=== PATIENT | male | born 1940 | race Caucasian/White ===

== ENCOUNTER 2017-01-07 12:05 | Inpatient (IN) | payer MEDICARE, OTHER ==
[~2017-01-07] VITALS: Ht 188 cm; Wt 93.8 kg
[~2017-01-07 12:05] MED LIST: ASPI-973 PO; ERTA1VIA2 IV; EZET10TA27 PO; FENO160T14 PO; GLIM4TAB2 PO; INSU100V7 SUBQ; METF500T4 PO; METO25TA6 PO; SITA100T12 PO
--- NOTE | 2017-01-07 12:46 | PCM.HPMED ---
Subjective Date of Service Jan 07, 2017 Primary Provider: Admitting Physician: Jovita Beth DO Primary Care Physician: Alejandro Briones MD Attending Physician: Jovita Beth DO Admit Status: Direct Admit Chief Complaint: PICC line thrombosis History of Present Illness: 76-year-old pleasant white male with past medical history of insulin-dependent diabetic diabetes, toe osteomyelitis for which he is currently on ertapenem and then ceftriaxone infusions until January 31, CAD, PVD, Velazquez's, fatty liver, hyperlipidemia, hypertension, old [place], urinary retention and peripheral neuropathy is presenting with chief complaint of right arm PICC line blood clot or thrombosis. He was in the unit in [place] for ertapenem infusion then he was noted to have the hematoma. Dr. Villalobos has ordered a ultrasound which showed the DVT. He was sent to [facility] admission for inpatient management of the DVT Patient patient denies arm numbness arm weakness. But he does endorse some tightening sensation in all also pain over his right shoulder and also distally into his elbow he thinks that the pain started 3 AM this morning he did not take anything to treat the patient appears his infusion set supposed to continue till January 21 denies that this to problems endorsing slight slow stream and urinary difficulty, peripheral neuropathy. He states that he has had no fevers or chills. Denies all other review of systems except as stated here.. Review of Systems: I will review of systems negative except as stated above Allergies Coded Allergies: Ssdstdf-Dat-Vpe Reductase Inhibitor (Verified Adverse Reaction, Intermediate, 12/25/16) nausea lisinopril (Verified Adverse Reaction, Mild, 12/25/16) PMH Past medical history is pertinent for type II diabetes that is insulin-dependent , toe osteomyelitis for which he is currently on IV treatment, hypertension, CAD status post W[place], CHRISTIE, status post leg stents bilaterally, colon cancer, Velazquez's esophagus, fatty liver, hyperlipidemia, peripheral neuropathy, BPH Surgical History Surgical history remarkable for open heart surgery 3 bypasses, oral surgery to remove all teeth, both knees had a bypass stents, meniscal tear repair bilateral knees Family History Mother had a blood cancer Dad of old age Social History Living Arrangement: with Family Exam Exam Gen.: No acute distress sitting up talking pleasantly HEENT: Normocephalic, atraumatic Neck midline no JVD Heart: Regular rate and rhythmwithout murmurs Lungs clear to auscultation bilaterally Abdomen: Nondistended nonobese Extremities: +1+ pitting edema in the right lower extremity, big toe on the light right side is wrapped in bandages Dr. 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 IMPRESSION: Intraluminal thrombus within the right subclavian, axillary, basilic and one of the 2 brachial veins of the left upper arm. Dictated by: Paul Price RRMarga Interpreted: Austin Nur MD on 01/07/2017 at 10 :23 Transcribed by: FRED on 01/07/2017 at 10:27 Assessment & Plan Acute diagnoses 1. DVT, POA: "Intraluminal thrombus visualized within the subclavian, axillary, basilic and and one of the paired brachial veins within the upper arm. Patent brachial veins and basilic vein within the distal arm" -- Heparin drip weight-based DVT PE protocol, will consider Coumadin versus Eliquis based on his insurance. Please discuss this with the UR to make sure he qualifies very eloquent as prior to starting Coumadin. Consider keeping him here for 2 days and heparin drip due to the extent of the clot prior to DC. -- Add hypercoagulability workup to his lab from this a.m. with possible -- DC/remove PICC line in 2 days per protocol, unless patient has increased pain , in that event, removing the line sooner is appropriate -- Added on factor work up to existing lab. -- EMERITA w/reflex and hepatitis panel can be drawn tomorrow AM. These labs are ordered as well. 2: Osteo myelitis of the right big toe, POA: Continue ceftriaxone infusions daily until January [address] Villalobos -- There is mention of Flagyl by pharmacy, patient may need to take by mouth. Investigate Chronic diagnoses: 3. DM II, chronic: 30 units daily at bedtime Lantus plus low-dose sliding scale plus metformin: Hold Januvia and glimepiride 4. HTN Continue her medication 5. CAD continue home aspirin, apparently is allergic to statins CODE STATUS: Limited resuscitation, does not want ventilator, chest compressions are okay DPOA: Youngest daughter Mary Jo Pain Evaluation: Adequate Pain Control VTE Prophylaxis: Other (heparin drip) Resuscitation Status: Limited Interventions Limited Interventions: Compressions, Cardioversion/Defibrillation Jovita Beth DO Jan 07, 2017 12:46 Pain Evaluation: Adequate Pain Control VTE Prophylaxis: Other (heparin drip) Resuscitation Status: Limited Interventions Limited Interventions: Compressions, Cardioversion/Defibrillation Jovita Beth DO Jan 07, 2017 12:46
[2017-01-07] MEDS ORDERED: Alum-Mag Hydrox-Simeth 30 mL Suspension PO PRN (12:55)
[2017-01-07] MEDS ORDERED: Ondansetron 2 mg/mL 2 mL Inj IVPUSH PRN (12:55)
[2017-01-07] MEDS ORDERED: Polyethylene Glycol (PEG) 17 Gm Powder PO PRN (12:55)
[2017-01-07] MEDS ORDERED: Heparin 5,000 Unit/mL Inj IVPUSH PRN (13:25)
[2017-01-07] MEDS ORDERED: Heparin 5,000 Unit/mL Inj IVPUSH ONE (13:25)
[2017-01-07] MEDS ORDERED: Heparin 25K Unit/500mL 0.45 NS 25,000 UNIT in IV Premix 1 EACH IV SCH (13:25)
[2017-01-07 13:30] VITALS: BP 98/58; PULSE 63; RESP 18; O2SAT 99
[2017-01-07] MEDS ORDERED: Glucose 40% Oral Gel 15 Gm Tube PO PRN (13:30)
[2017-01-07 14:32] LABS: INR 1.18 ratio
[2017-01-07] MEDS ORDERED: ROSU10TA24 PO (14:56)
--- NOTE | 2017-01-07 15:34 | DRSVH ---
PROCEDURE: X-RAY CHEST ONE VIEW, PORTABLE ([id number]) INDICATIONS: picc line verification TECHNIQUE: One view of the chest was acquired. COMPARISON: [facility], CR, XR CHEST 1VW (PORTABLE), 12/25/2016, 12:02. FINDINGS: Surgical changes and devices: Post median sternotomy. Right PICC present projected over the lower SV C. Lungs and pleura: No pleural effusions or pneumothorax. Lungs are clear. Mediastinum: Mediastinal contours appear normal. Heart size is normal. Bones and chest wall: No suspicious bony lesions. Overlying soft tissues appear unremarkable. IMPRESSION: Right PICC tip projected over the lower SVC. Dictated by: Paul Price [facility] Interpreted: Austin Nur MD on 01/07/2017 at 15:33 Transcribed by: FRED on 01/07/2017 at 15:33 Approved by: Austin Nur M.D. on 01/07/2017 at 15:43
[2017-01-07] MEDS: Sodium Chloride LOK Flush 10 mL Syringe IVFLUSH SCH (16:06)
[2017-01-07] MEDS: Insulin LISPRO 300 Unit/3 mL Inj SUBQ SCH ×2 (17:25→21:24)
--- NOTE | 2017-01-07 19:18 | NUR ---
Admit from outpatient MOC pt. receiving scheduled daily antibiotics through outpatient [facility]. RUE painful, tender, edematous around PICC line; us verified blood clot. Pt. admitted to [facility] 248-1; heparin bolus 7500 units given per md orders; started heparin gtt per dvt protocol at 18 units/kg/hr, 33.8 ml/hr, verified with Sandra Pederson RN. IND in room; steady on feet.
[2017-01-07 20:30] VITALS: BP 114/66; PULSE 64; RESP 16; O2SAT 96
[2017-01-07] MEDS ORDERED: Insulin GLARgine 100 Unit/mL Syringe SUBQ SCH (21:00)
[2017-01-07] MEDS: Insulin GLARgine 100 Unit/mL Syringe SUBQ SCH (21:21)
[2017-01-08] VITALS: BP 118/74; PULSE 66; RESP 17; O2SAT 95
[2017-01-08] MEDS: Sodium Chloride LOK Flush 10 mL Syringe IVFLUSH SCH ×3 (01:04→16:54)
[2017-01-08 04:19] VITALS: BP 113/68; PULSE 62; RESP 16; O2SAT 95
--- NOTE | 2017-01-08 04:33 | NUR ---
Shift Note Pt. alert and responsive, running heparin gtt @ 33.8 ml/hr via PICC line to RUE, swelling noted and trace edema to RE noted, MD aware. 2200 aPTT draw done, results came back @ 2245- (170.4), stopped heparin gtt, Notified MD and ordered stat aPTT draw per protocol, results came back @ 2345- (114.3), Heparin gtt stopped for 60 min per protocol and restarted at 0045 running at 26.3 ml/hr, verified dose with Saskia Powell RN. 0300 Pt. RUE has gotten more swollen and tight, paged MD to notify, instructed not to pull out PICC line at this time, Elevated RUE in pillow and applied K-pad per order with Pt. stated " It feels a lot better" 30 min later, swelling has gone down a little. Vitals stable, pt. denies chest pain and SOB. Hourly rounds, call light in reach, Will continue to monitor and follow current plan of care.
[2017-01-08 07:00] LABS: BASOPHILS % (AUTO) 0.4 % (0-3); Mean Corpuscular Hemoglobin 29.7 pg (27.0-35.0); Mean Corpuscular Volume 87.7 fL (81-100); NEUTROPHILS % (AUTO) 56.2 % (40-74); Platelet Count 160 bil/L (150-400)
[2017-01-08] MEDS: Insulin LISPRO 300 Unit/3 mL Inj SUBQ SCH ×4 (08:00→20:59)
[2017-01-08 08:22] VITALS: BP 123/79; PULSE 62; RESP 18; O2SAT 94
[2017-01-08] MEDS ORDERED: SITAGLIPTIN PHOS 100 MG PO SCH (08:30)
[2017-01-08] MEDS ORDERED: Ertapenem Inj 1,000 MG in 0.9% Sodium Chloride 50 ML IV SCH (08:30)
--- NOTE | 2017-01-08 09:06 | PCM.PNMED ---
Subjective Date of Service Jan 08, 2017 Subjective Says right arm less swollen, no other complaints Exam Vital Signs Vital Sign - Last Date Time Temp Pulse Resp B/P Pulse Ox O2 Delivery O2 Flow Rate FiO2 01/08/17 08:22 36.4 62 18 123/79 94 Room Air Intake and Output 01/07/17 01/07/17 01/08/17 Cumulative From/Thru 15:00 23:00 07:00 01/07/17 13:30 - 01/08/17 06:03 Intake Total 240 ml 840 ml 1080 ml Output Total 820 ml 820 ml Balance 240 ml 20 ml 260 ml Intake Oral 240 ml 480 ml 720 ml IV Total 360 ml 360 ml Output Urine Total 820 ml 820 ml # Voids 1 1 # Bowel Movements 1 1 Exam Gen: alert, oriented, no acute distress Heart: Reg Lungs: Clear Right arm mild-mod swollen but no pitting, faint erythema IVs and Medications Medications Reviewed: Medications were reviewed in detail Lab and Diagnostics Result Diagram: 01/08/17 0500 01/08/17 0640 X-Rays, CTs and MRIs INDICATIONS: 76 year-old male with upper subcutaneous swelling. IMPRESSION: Intraluminal thrombus within the right subclavian, axillary, basilic and one of the 2 brachial veins of the left upper arm. Dictated by: Paul Price RRA Interpreted: Austin Nru MD on 01/07/2017 at 10 :23 Transcribed by: FRED on 01/07/2017 at 10:27 Assessment & Plan Acute diagnoses 1. DVT, POA: "Intraluminal thrombus visualized within the subclavian, axillary, basilic and and one of the paired brachial veins within the upper arm. Patent brachial veins and basilic vein within the distal arm" -- Will change Heparin drip to full dose Lovenox. -- Begin Warfarin -- labs for hypercoagulability workup ordered for this a.m., Added on factor work up to existing lab. -- DC/remove PICC line tomorrow per protocol, unless patient has increased pain , in that event, removing the line sooner is appropriate -- EMERITA w/reflex and hepatitis panel ordered by Dr Beth to be drawn this am 2: Osteo myelitis of the right big toe, POA: Continue ceftriaxone infusions daily until January [address] Villalobos RECOMMENDATIONS by Dr Villalobos 12/29: 1. Will switch the ertapenem to ceftriaxone 2 g once a day with the same labs and follow up. 2. To enhance the anaerobic coverage we will add about a two-week course of oral Flagyl to the ceftriaxone and I will call that to the patient's pharmacy. Chronic diagnoses: 3. DM II, chronic: 30 units daily at bedtime Lantus plus low-dose sliding scale plus metformin: Hold Januvia and glimepiride 4. HTN Continue his medication 5. CAD continue home aspirin, apparently is allergic to statins CODE STATUS: Limited resuscitation, does not want ventilator, chest compressions are okay DPOA: Youngest daughter Mary Jo Pain Evaluation: Adequate Pain Control VTE Prophylaxis: Other (heparin drip) Resuscitation Status: Limited Interventions Limited Interventions: Compressions, Cardioversion/Defibrillation Gwendolyn Norman MD Jan 08, 2017 09:06
[2017-01-08] MEDS ORDERED: 0.9% Sodium Chloride 250 ML ONE (11:05)
[2017-01-08] MEDS: cefTRIAXone Inj 2,000 MG in Dextrose 5% Minibag Plus 50 ML IV SCH (11:07)
--- NOTE | 2017-01-08 11:13 | NUR ---
Wound Care Wound evaluation orders received, patient seen at bedside. Patient reports Dr Lange changed dressing at his right great toe yesterday and he has an appointment at the wound center 01/[address] Lange. Will defer his care to podiatry at this time.
[2017-01-08 14:18] VITALS: BP 110/68; PULSE 57; RESP 16; O2SAT 95
--- NOTE | 2017-01-08 16:02 | PROG NOTE ---
[address] [address] PROGRESS NOTE PATIENT: OMER BEGUM : 1940 MR#: [id number] ADMIT: 01/07/2017 JOB ID: [id number] DATE: 01/08/2017 INFECTIOUS DISEASE FOLLOWUP NOTE: REASON FOR FOLLOWUP: Osteomyelitis of a toe plus new right upper extremity DVT secondary to PICC line. INTERVAL HISTORY: Yesterday, I was called to the [facility] [place] [facility], where the patient is receiving ceftriaxone and Flagyl at my direction for treatment of peripheral vascular disease-associated toe infection with underlying osteomyelitis. The patient has underlying diabetes, neuropathy and peripheral vascular disease, and developed an ulcer of his right distal great toe after doing a lot of work packing up his residence that he was about to sell. He had MSSA isolate from [facility] [place], and the [place] physicians and operations research director asked me if I would assume his care here at [facility]. We decided to proceed with a six-week course of ertapenem as recommended by the [place] infectious disease doctors but very quickly that made the patient sick in terms of GI symptoms, and we moved to a combo of ceftriaxone and Flagyl, which he preferred, administered by the right-sided PICC line that had been placed in [place]. That plan was going along smoothly until yesterday when the patient reported to the [facility] for his daily infusion and stated his arm was suddenly swollen and extremely painful. He had suffered dramatic swelling of his right upper extremity. I was called to evaluate it which I did briefly but did not have time to write a note. In any event, the arm was grossly swollen, and I recommended a stat ultrasound for evaluation. That ultrasound was done and showed an extensive clot within the right subclavian, axillary, basilic veins. On that basis, I recommended he be admitted and anticoagulated, and that his PICC line be pulled. There were no associated fevers or chills but rather just abrupt swelling of the right upper extremity. The patient also had no nausea, vomiting, diarrhea, or shortness of breath. Overnight, the patient reports he has been on the blood thinners, and his arm is much better. The decision has been made to wait another day or two before pulling the PICC which is not unreasonable. His arm has come down greatly in size, and the pain has much improved overnight. He still has no fevers, chills, sweats, cough, chest pain, nausea, vomiting, diarrhea, or dysuria. His toe is feeling reasonably well but he has neuropathy and so, it is hard to know what that means. PHYSICAL EXAMINATION: Reveals an afebrile gentleman. Temperature 36.5, pulse 57, respiratory rate 16, blood pressure 110/68, saturating at 95% on room air. He is in no acute distress, laughing and conversant. Oral cavity negative. Neck supple without adenopathy or swelling in the right side. Right upper extremity was hugely swollen yesterday. It is still about 50% bigger than the left arm today but much less tight than it was previously. There is no sign of erythema around the PICC or the swollen arm. The PICC is still in place with plans to pull it tomorrow morning. The patient's lungs are clear. His abdomen is soft and nontender, and he is in no acute distress. LABORATORIES: Include a white count of 7400. Creatinine 0.83. LFT are normal. Albumin 4.2. IMAGING: Reviewed from the ultrasound yesterday. A chest x-ray was also done yesterday which was clear. 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 He now has a deep venous thrombosis, and he is on appropriate anticoagulation with plans to wait a day or so and then pull out the peripherally inserted central catheter line. His arm has already improved. The plan would be to continue with the ceftriaxone 2 g once a day, as well as Flagyl 500 b.i.d. through January 31 which was our original target date for completion of therapy. The question will be how to give it now that we no longer have a peripherally inserted central catheter line. The patient can continue to use peripheral IVs in his left upper extremity and eventually perhaps his right upper extremity as the swelling subsides. This would be a somewhat perhaps more painful option than putting in a new PICC line but may prove to be safer. On the other hand, if the team prefers to place a midline or a peripherally inserted central catheter in the left upper extremity to complete therapy, that would not be unreasonable either. RECOMMENDATIONS: 1. Ceftriaxone 2 g once a day through January 31. 2. Flagyl 500 b.i.d. through January 31. 3. Note the interaction between Flagyl and Coumadin, which will have to be taken into account when dosing his Coumadin. 4. The patient, for insurance and other reasons, wants to continue to receive his infusions through of the [facility]. So, once he is ready to go home, he can simply return daily to the [facility] through January 31 with the labs and other studies as ordered by me. 5. Follow up with me in the clinic January 31. 6. Follow up with Dr. Lange as indicated.
--- NOTE | 2017-01-08 16:10 | NUR ---
Heparin Enoxaparin administered and Heparin gtt discontinued per orders. No s/s bleeding. Swelling and pain diminished in RUE.
[2017-01-08 20:12] VITALS: BP 133/70; PULSE 60; RESP 18; O2SAT 99
[2017-01-08] MEDS: Insulin GLARgine 100 Unit/mL Syringe SUBQ SCH (21:59)
[2017-01-09] MEDS: Sodium Chloride LOK Flush 10 mL Syringe IVFLUSH SCH ×3 (00:54→16:30)
[2017-01-09 02:06] VITALS: BP 104/67; PULSE 61; RESP 17; O2SAT 95
[2017-01-09 04:07] LABS: Hepatitis A Antibody IgM Negative (Negative); Hepatitis B Core Antibody IgM Negative (Negative)
[2017-01-09 06:10] VITALS: BP 134/80; PULSE 62; RESP 17; O2SAT 97
--- NOTE | 2017-01-09 07:10 | NUR ---
Shift note uneventful night no changes no s/sx of bleeding
[2017-01-09] MEDS: Insulin LISPRO 300 Unit/3 mL Inj SUBQ SCH ×3 (08:00→17:30)
[2017-01-09 08:22] LABS: INR 1.11 ratio
[2017-01-09] MEDS: cefTRIAXone Inj 2,000 MG in Dextrose 5% Minibag Plus 50 ML IV SCH (09:47)
--- NOTE | 2017-01-09 10:35 | NUR ---
Morning Rounds Staffed patient's case with Dr. Norman and social work. Dr. Norman stated patient will possibly be discharged today, MD just needs to follow up on whether the PICC needs to be pulled today. Patient will continue IV antibiotic therapy on an outpatient basis.
[2017-01-09 11:15] VITALS: BP 109/69; PULSE 64; RESP 18; O2SAT 98
--- NOTE | 2017-01-09 14:08 | CONS ---
[address] [address] CONSULTATION REPORT PATIENT: OMER BEGUM : 1940 MR#: [id number] ADMIT: 01/07/2017 JOB ID: [id number] DATE OF SERVICE: 01/09/2017 CHIEF COMPLAINT: Infected right great toe. HISTORY: The patient is a 76-year-old who has had osteomyelitis of his right distal phalanx secondary to an ulceration that developed while he was physically active over a period of 24 hours, moving his residence prior to selling it. The patient was unaware of the ulcer developing due to neuropathy from diabetes and inappropriately fitting boots. He has been staying with his daughter since he sold his home. He is very cooperative with the treatment of right upper extremity DVT that resulted as a consequence of PICC line placement and IV antibiotics for the osteomyelitis in his right great toe. Today, he was supposed to see me in the [facility] for further debridement. I was called to see him on the observation floor two days ago while he was waiting admission to clean up his toe as the nurse was having difficulty changing his dressing. It was stuck to his toe and his skin was starting to peel. At that point, I did some debridement of loose-appearing tissue and rebandaged the toe and was going to recheck it today for further debridement as necessary. REVIEW OF SYSTEMS: Patient denies fevers, chills, nausea, or vomiting, chest pains or shortness of breath. He is having a significant amount of swelling in his right upper extremity, mainly distal to the elbow. He is experiencing some pain, especially with elevation. Ulcer on the right foot: Without pain. There is peripheral neuropathy distal to the mid calf bilaterally. Previous arterial bypass surgeries with mature scars, bilateral lower extremity. PAST MEDICAL HISTORY: Type 2 diabetes, insulin-dependent. Osteomyelitis, right great toe. Coronary artery disease, status post myocardial infarction. Peripheral arterial disease, status post bypass surgery. Colon cancer, Velazquez's esophagus, fatty liver, hyperlipidemia, and BPH. SURGICAL HISTORY: Triple bypass, oral surgery, bilateral lower extremity bypasses, meniscal tear repair bilaterally. SOCIAL HISTORY: The patient is not currently drinking or using tobacco. He lives with his daughter. FAMILY HISTORY: Noncontributory. PHYSICAL EXAMINATION: The patient is alert, oriented, in no acute distress. Very pleasant and cooperative. Vital signs on my arrival were blood pressure 109/69, pulse 64, respirations 18, temperature 36.5 degrees Celsius, pulse ox 98% at room air. Lab findings shows a white blood cell count is 7400, hemoglobin 13.3, hematocrit 39.3, platelet count 160,000. All chemistries and electrolytes and liver function tests within normal limits. No elevation in troponins. Negative EMERITA screen. INR 1.1. Focused right lower extremity examination shows nonpalpable dorsalis pedis and posterior tibial pulse but warm and well-perfused foot. Capillary refill to the toes is less than 3 seconds. Open ulceration, distal right great toe, 1.2 x 1.3 cm in size, 0.3 cm in depth with a fibrinous base and small granular buds developing distally. No exposed or probed bone The dryness of the skin is minimal today compared to the previous visit a couple of days ago. Left foot is free of ulcerations. There are some dried blisters at the tips of the toes that are ready to peel off, as the underlying epithelium is fully intact. Nonpalpable pulse but warm and well-perfused left foot with capillary refill less than 3 seconds. No edema, no erythema, no streaking in bilateral lower extremities. Hallux malleus deformity with hammertoe deformities are all reducible bilaterally. The patient has a mild cavus foot deformity. ASSESSMENT: 1. Osteomyelitis, right great toe. Currently on IV antibiotics. 2. Type 2 diabetes with peripheral neuropathy and digital deformities bilaterally. PLAN: After evaluating the patient today, I sharply excised the ulceration on the tip of his great toe using a #15 scalpel and forceps and eliciting a small amount of bleeding that was controlled with direct pressure. Due to the dryness in the wound margins, I am switching him to wound gel dressing with an adhesive foam over it for the next few days, and I will see him back next Thursday for reassessment to see if this is too moist for this wound healing to occur. He is to wear a sock over it at all times and have it changed every other day at [facility] when he comes for his IV infusions. It is imperative to clean it with saline if the wound is dry and Betadine if the wound is too moist. Today, final wound measurements were 1.4 x 1.3 cm in size and 0.2 cm in depth after excisional debridement of nonviable tissue. He tolerated it all well secondary to neuropathy. He will be wearing his postop shoe on his right foot for any ambulation to prevent further injury to the area of the ulceration. He will be contacted with a time at the Wound Center to follow up next Thursday. At this point, I will write orders for nursing to continue changing the dressings for the duration of the inpatient stay, and I will sign off for this inpatient stay episode but will follow up if necessary at the beginning of next week, if he is not discharged by then.
[2017-01-09 14:38] VITALS: BP 129/77; PULSE 60; RESP 18; O2SAT 96
--- NOTE | 2017-01-09 14:42 | DRSVH ---
PROCEDURE: US VENOUS ARM DUPLEX UNILATERAL, RIGHT INDICATIONS: re-evaluate DVT around PICC TECHNIQUE: Real-time imaging, as well as color and pulse Doppler interrogation, was performed of the right upper extremity deep veins from the inferior neck to the antecubital fossa. COMPARISON: [facility], US, US VENOUS ARM DPLX UNI RT, 01/07/2017, 9:40. FINDINGS: Occlusive thrombus again seen involving the subclavian, axillary, brachial as well as the radial ulnar veins within the upper forearm and one of the 2 paired basilic veins which appear simila r to the prior examination. The cephalic vein as well as the internal jugular vein are patent. IMPRESSION: 1. Occlusive thrombus within the right upper extremity with no significant change from the prior exam ination. Dictated by: Paul Price [facility] Interpreted: Karime Hoyt MD on 01/09/2017 at 14:36 Transcribed by: JOLEEN on 01/09/2017 at 14:41 Approved by: Karime Hoyt MD, PhD on 01/09/2017 at 16:22
--- NOTE | 2017-01-09 14:50 | NUR ---
Plan for Discharge Contacted Dr. Norman with the following cook page: Patient has had ultrasound and Dr. Villalobos has called in order to outpatient MOC, do not see discharge orders at this time, please add for discharge or advise of change in discharge plan. Thank you. Dorita [facility] [id number]
--- NOTE | 2017-01-09 14:57 | NUR ---
Order for PICC line removal Contacted Dr. Norman with the following cook page: Called IV therapy to have PICC line pulled, was told an order is needed. Please put in order to have PICC line pulled. Thank you. Dorita [facility] [id number]
--- NOTE | 2017-01-09 14:58 | PCM.DIMED ---
Discharge Instructions Date of Service Jan 09, 2017 Dates of Hospitalization Jan 07, 2017 at 12:05 Discharge Diagnosis Discharge Diagnosis Right upper extrem DVT Osteo myelitis of the right big toe, DM II HTN CAD Diet Heart Healthy, Diabetic Activity No restrictions Patient Instructions Follow-up with PCP in: 2 weeks Follow-up in: 1 week (Dr Lange) Gwendolyn Norman MD Jan 09, 2017 14:58
[2017-01-09] MEDS ORDERED: METR500T PO (15:04)
[2017-01-09] MEDS ORDERED: CEFT2VIA5 IJ (15:04)
[2017-01-09] MEDS ORDERED: LOV100 SUBQ (15:04)
[2017-01-09] MEDS ORDERED: WARF5TAB PO (15:04)
--- NOTE | 2017-01-09 15:13 | PCM.DC.MED ---
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 IMPRESSION: Intraluminal thrombus within the right subclavian, axillary, basilic and one of the 2 brachial veins of the left upper arm. Dictated by: Paul Price RRA Interpreted: Austin Nur MD on 01/07/2017 at 10 :23 Transcribed by: FRED on 01/07/2017 at 10:27 Brief History 76-year-old pleasant white male with past medical history of insulin-dependent diabetic diabetes, toe osteomyelitis for which he is currently on ertapenem and then ceftriaxone infusions until January 31, CAD, PVD, Velazquez's, fatty liver, hyperlipidemia, hypertension, old IL, urinary retention and peripheral neuropathy is presenting with chief complaint of right arm PICC line blood clot or thrombosis. He was in the unit in [place] for ertapenem infusion then he was noted to have the hematoma. Dr. Villalobos has ordered a ultrasound which showed the DVT. He was sent to [facility] admission for inpatient management of the DVT Patient patient denies arm numbness arm weakness. But he does endorse some tightening sensation in all also pain over his right shoulder and also distally into his elbow he thinks that the pain started 3 AM this morning he did not take anything to treat the patient appears his infusion set supposed to continue till January 21 denies that this to problems endorsing slight slow stream and urinary difficulty, peripheral neuropathy. He states that he has had no fevers or chills. Denies all other review of systems except as stated here.. Hospital Course Acute diagnoses 1. DVT, POA: "Intraluminal thrombus visualized within the subclavian, axillary, basilic and and one of the paired brachial veins within the upper arm. Patent brachial veins and basilic vein within the distal arm" -- Will change Heparin drip to full dose Lovenox. -- Begin Warfarin, called his PCP Dr Briones ([place]) but no reply received. Will have patient contact him Lukasz for follow up on anticoagulation. Since not a local patient the [facility] here say they cannot manage him -- Continue SQ Lovenox until Warfarin therapeutic (to be determined by his PCP Dr Briones) -- labs for hypercoagulability workup ordered. 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 Villalobos RECOMMENDATIONS by Dr Villalobos 12/29: 1. Will switch the ertapenem to ceftriaxone 2 g once a day with the same labs and follow up. 2. To enhance the anaerobic coverage we will add about a two-week course of oral Flagyl Chronic diagnoses: 3. DM II, chronic: 30 units daily at bedtime Lantus plus low-dose sliding scale plus metformin: Hold Januvia and glimepiride 4. HTN Continue his medication 5. CAD continue home aspirin, apparently is allergic to statins CODE STATUS: Limited resuscitation, does not want ventilator, chest compressions are okay DPOA: Youngest daughter Mary Jo Exam Vital Signs (Last) Date Time Temp Pulse Resp B/P Pulse Ox O2 Delivery O2 Flow Rate FiO2 01/09/17 14:38 36.5 60 18 129/77 96 Room Air Exam Gen: alert and oriented Heart: Reg Lungs: Clear Right arm: decreased swelling but still mild compared to left arm Test 01/07/17 14:12 01/08/17 03:15 01/08/17 05:00 01/08/17 06:40 Troponin T < 0.010ug/L (0.0-0.011) Hold Urine Received (Received) White Blood Count 7.4th/mm3 (3.8-10.1) Red Blood Count 4.48mil/mm3 (4.40-5.80) Hemoglobin 13.3g/dL (13.8-17.2) Hematocrit 39.3% (41.0-50.0) Mean Corpuscular Volume 87.7fL (81-100) Mean Corpuscular Hemoglobin 29.7pg (27.0-35.0) Mean Corpuscular Hemoglobin Concent 33.8% (32.0-37.0) Red Cell Distribution Width 13.2% (12.3-15.4) Platelet Count 160bil/L (150-400) Neutrophils (%) (Auto) 56.2% (40-74) Lymphocytes (%) (Auto) 28.1% (14-46) Monocytes (%) (Auto) 11.0% (4-12) Eosinophils (%) (Auto) 4.0% (0-5) Basophils (%) (Auto) 0.4% (0-3) Sodium Level 139mEq/L (134-144) Potassium Level 3.8mEq/L (3.5-5.2) Chloride Level 101mEq/L (97-108) Carbon Dioxide Level 23mmol/L (18-29) Blood Urea Nitrogen 14mg/dL (8-27) Creatinine 0.83mg/dL (0.76-1.27) Estimat Glomerular Filtration Rate 96mL/min (>59) Glucose Level 96mg/dL (60-99) Calcium Level 9.3mg/dL (8.5-10.1) Total Bilirubin 0.2mg/dL (0.0-1.2) Aspartate Amino Transf (AST/SGOT) 20U/L (0-50) Alanine Aminotransferase (ALT/SGPT) 13U/L (0-44) Alkaline Phosphatase 33U/L (25-160) Total Protein 6.4g/dL (6.4-8.4) Albumin 4.2g/dL (3.4-5.0) Anti-Nuclear Antibody Screen Negative (Negative) Hepatitis A IgM Antibody Negative (Negative) Hepatitis B Surface Antigen Negative (Negative) Hepatitis B Core IgM Antibody Negative (Negative) Hepatitis C Antibody <0.1s/co ratio (0.0-0.9) Hepatitis C Comment Comment (.) Test 01/08/17 13:35 01/09/17 07:50 Activated Partial Thromboplast Time 29.3sec (22.8-33.0) Prothrombin Time 11.9sec (8.1-12.5) Prothromb Time International Ratio 1.11ratio Discharge Medications Discharge Medications Aspirin (Aspirin) 81 Mg Tablet 81 MG PO DAILY (Reported) Ceftriaxone Sodium (Ceftriaxone) 2 Gm Vial 2 GM IJ DAILY Prescribed by: DONNA TURNER MD Enoxaparin (Lovenox) 100 Mg/Ml Syringe 100 MG SUBQ BID Prescribed by: DONNA TURNER MD Ezetimibe (Ezetimibe) 10 Mg Tablet 10 MG PO HS (Reported) Fenofibrate (Fenofibrate) 160 Mg Tablet 160 MG PO DAILY (Reported) Glimepiride (Glimepiride) 4 Mg Tablet 4 MG PO BIDAC (Reported) Insulin Glargine (Lantus U100 Insulin Vial) 100 Unit/Ml Vial 40 UNIT SUBQ HS ( Reported) Metformin (Metformin) 500 Mg Tablet 1,000 MG PO BID (Reported) Metoprolol Tartrate (Metoprolol Tartrate) 25 Mg Tablet 25 MG PO BID (Reported) Metronidazole (Flagyl) 500 Mg Tablet 500 MG PO BID Prescribed by: DONNA TURNER MD Rosuvastatin Calcium (Rosuvastatin Calcium) 10 Mg Tablet 10 MG PO HS (Reported) Sitagliptin Phos (Januvia) 100 Mg Tablet 100 MG PO DAILY (Reported) Warfarin Sodium (Coumadin) 5 Mg Tablet 5 MG PO DAILY@17 One each day on Thursday and Thursday and then contact your primary care doctor on Thursday to determine further doses Prescribed by: DONNA TURNER MD Followup Plan Discharge Diet: Heart Healthy, Diabetic Discharge Activity: No restrictions Follow-up with PCP in: 2 weeks Follow-up in: 1 week (Dr Lange) Donna Turner MD Jan 09, 2017 15:13
--- NOTE | 2017-01-09 17:55 | NUR ---
Discharge Note Provided patient will discharge instructions and information. Patient had no questions at this time. Patient was finishing his dinner, but had already gathered all of his belongings. Patient will call for transport once he is dressed and is ready to leave.
--- NOTE | 2017-01-09 18:15 | NUR ---
Discharge Patient did not want to wait for transport via wheelchair, walked off unit on his own with his belongings.
== END 2017-01-09 18:15 | disposition home or self-care (01) | DRG 264 ==
LOC: MOC 12:05
PROVIDERS: ADMIT Family Medicine; ATTEND Family Medicine
PROC: 0HBMXZZ Excision of Right Foot Skin, External Approach (ICD-10-PCS; principal; 2017-01-09)
DX: T82.868A Thrombosis due to vascular prosthetic devices, implants and grafts, initial encounter (principal); I82.621 Acute embolism and thrombosis of deep veins of right upper extremity; M86.171 Other acute osteomyelitis, right ankle and foot; Z79.4 Long term (current) use of insulin; E78.5 Hyperlipidemia, unspecified; I10 Essential (primary) hypertension; I25.10 Atherosclerotic heart disease of native coronary artery without angina pectoris; E11.40 Type 2 diabetes mellitus with diabetic neuropathy, unspecified